=== PATIENT | female | born 1995 | race Caucasian/White ===

== ENCOUNTER → 2021-09-11 | Outpatient (CLI) | payer OTHER | LOC: KOH-I 10:56 | DX: S92.352D Displaced fracture of fifth metatarsal bone, left foot, subsequent encounter for fracture with routine healing (principal) | CPT/HCPCS: 73630 ==

== ENCOUNTER → 2021-10-25 | Outpatient (CLI) | payer OTHER | LOC: KOH-I 15:37 | DX: S92.352D Displaced fracture of fifth metatarsal bone, left foot, subsequent encounter for fracture with routine healing (principal) | CPT/HCPCS: 73630 ==

== ENCOUNTER → 2021-11-26 | Outpatient (CLI) | payer OTHER | LOC: KOH-I 15:51 | DX: S92.352D Displaced fracture of fifth metatarsal bone, left foot, subsequent encounter for fracture with routine healing (principal) | CPT/HCPCS: 73630 ==